=== PATIENT | male | born 1985 | race Caucasian/White ===

== ENCOUNTER 2019-05-16 16:24 | Emergency (ER) | payer SELFPAY ==
[2019-05-16 16:43] VITALS: BP 146/104; PULSE 111; RESP 16; TEMP 36.4; O2SAT 98; BMI 24.3
--- NOTE | 2019-05-16 16:54 | CTR_ITS ---
PROCEDURE INFORMATION: Exam: CT Head Without Contrast Exam date and time: 05/16/2019 4:55 PM Age: 33 years old Clinical indication: Injury or trauma; Fall; Work related; Initial encounter; Blunt trauma (contusions or hematomas); Altered mental status/memory loss; Injury details: C/O posterior head pain with abrasion TECHNIQUE: Imaging protocol: Computed tomography of the head without contrast. Total DLP: 865.7 mGy-cm Radiation optimization: All CT scans at this facility use at least one of these dose optimization techniques: automated exposure control; mA and/or kV adjustment per patient size (includes targeted exams where dose is matched to clinical indication); or iterative reconstruction. COMPARISON: No relevant prior studies available. FINDINGS: Brain: There is no acute intracranial hemorrhage or abnormal extra-axial fluid collection identified. There is no intracranial mass effect or shift of midline structures. The jamison-white differentiation is preserved throughout. Ventricles: There is no sulcal or ventricular effacement. The basilar cisterns are open. No hydrocephalus. Bones/joints: No calvarial fracture or destructive osseous lesions are seen. Sinuses: There is mild sinus mucosal disease, with no air-fluid level identified. Mastoid air cells: There is no mastoid effusion detected. CT/CT head wo con* [id number] IMPRESSION: No acute intracranial pathology identified by CT. Radiation Dose CTDIVOL = (mGy): DLP = 865.7 (mGy-cm)
== END 2019-05-16 19:23 | disposition home or self-care (01) ==
LOC: ER 17:37
PROVIDERS: Emergency Provider Nurse Practitioner Family; Family Provider Nurse Practitioner; PCP Nurse Practitioner
DX: Z53.21 Procedure and treatment not carried out due to patient leaving prior to being seen by health care provider (principal)
CPT/HCPCS: 70450; 99281

== ENCOUNTER 2019-05-17 10:15 | Emergency (ER) | payer SELFPAY ==
[2019-05-17 10:20] VITALS: BP 143/119; PULSE 104; RESP 16; TEMP 36.7; O2SAT 99; BMI 24.3
--- NOTE | 2019-05-17 10:31 | ED_ITS ---
Entered by Natalia Barrios, acting as scribe for May 17, 2019 10:15 HPI - Fall General: Chief Complaint: Fall Stated Complaint: Possible concusion Time Seen by Provider: 05/17/19 10:31 Source: patient and family Mode of arrival: ambulatory Limitations: no limitations History of Present Illness: HPI Narrative: 33 yo male presents with neck and head pain post fall. pt states he fell yesterday. pt was seen yesterday in the ED but the wait was to long and he left after CT scan. pt took ibuprofen for pain at home. pt had confusion yesterday after fall. unknown LOC. pt has had nausea. pt stated movement makes the pain worse. pt denies any other symptoms at this time. complaint: fall Onset (ago): day(s) (yesterday) Fall from: standing Fall witnessed: yes, by bystander Place fall occurred: home Loss of consciousness: Unsure Prolonged down time: no Symptoms prior to fall: none Context: other (it lost his balance and fell backwards off the porch) Location of injury: head (back of head) and neck (today) Severity: mild Quality: sharp (with movement) Associated symptoms-after fall: Reports headache(s), neck pain and other (head pain); Denies chest pain Review of Systems Const: Denies: fever, chills or night sweats Eyes: Denies: change in vision ENMT: Denies: throat pain, Change in hearing, tinnitus, disequilibrium, nasal discharge or nasal congestion Card: Denies: chest pain, palpitations, irregular heart rhythm, edema or syncope Resp: Denies: shortness of breath, productive cough or wheezing GI: Reports: nausea : Denies: flank pain, painful urination, urinary frequency or urinary urgency Musc: Reports: neck pain Neuro: Reports: headache PFSH ED PFSH: Statuses (acute, chronic, etc) shown below reflect problem list status as previously entered and may not be historically accurate Social History Smoking and tobacco status: current every day smoker Physical Exam Const: COMMON NORMALS: average body habitus, oriented x3 and alert GENERAL APPEARANCE: cooperative, comfortable, well kempt and well developed NUTRITIONAL APPEARANCE: obese ORIENTATION/CONSCIOUSNESS: Yes awake, Yes oriented to person and Yes oriented to place HENMT: COMMON NORMALS: normocephalic, head/scalp atraumatic, EAC's normal, TM's normal bilaterally, external nose normal, moist oral mucous membranes and oropharynx normal HEAD & SCALP: normocephalic and atraumatic NOSE: external nose normal EXTERNAL AUDITORY CANAL: EAC's normal TYMPANIC MEMBRANE: TM's normal bilaterally MOUTH: oral and palatal mucosa normal, lip normal and tongue normal THROAT: posterior oropharynx normal and tonsils normal Eye: COMMON NORMALS: PERRL, EOMs intact bilaterally, conjunctivae normal and no scleral icterus CONJUNCTIVA: Yes conjunctivae normal PUPIL: Yes PERRL Neck/C-Spine: COMMON NORMALS: full ROM, no lymphadenopathy, supple, no meningeal signs and thyroid normal THYROID: thyroid normal and asymmetrical Lymph: LYMPHATIC: no lymphadenopathy noted Resp: COMMON NORMALS: normal respiratory effort, no retractions, no use of accessory muscles and clear to auscultation bilaterally AUSCULTATION: clear to auscultation bilaterally Cardio: COMMON NORMALS: regular rate and regular rhythm RATE: regular rate RHYTHM: regular rhythm HEART SOUNDS: no murmurs GI: COMMON NORMALS: normal to inspection, nondistended, normoactive bowel sounds, soft to palpation and no hepatosplenomegaly PALPATION: Yes soft and Yes no hepatosplenomegaly : COMMON NORMALS: Yes no CVA tenderness BLADDER/KIDNEY EXAM: Yes no CVA tenderness Back/Pelvis: COMMON NORMALS: no CVA tenderness LUMBAR SPINE/LOWER BACK: Yes normal to inspection Extremity: COMMON NORMALS: no clubbing, cyanosis or edema, no calf tenderness and no pedal edema Neuro: COMMON NORMALS: oriented x3 SENSORIUM/ORIENTATION: Yes alert, Yes oriented to person and Yes oriented to place MENINGEAL SIGNS: Yes no meningeal signs Psych: APPEARANCE: Yes well kempt Skin: COMMON NORMALS: no rashes or lesions noted and skin turgor normal GENERAL SKIN EXAM: no rashes or lesions noted and turgor normal Course ED course: Reviewed imaging findings with the patient both head CT the C-spine is negative we will go and discharge home can use anti-inflammatories as needed Vital Signs: Vital signs: Vital Signs Temperature 98.0 F 05/17/19 10:20 Pulse Rate 98 05/17/19 11:43 Respiratory Rate 17 05/17/19 11:43 Blood Pressure 152/90 05/17/19 11:43 Pulse Oximetry 97 05/17/19 11:11 MDM - Fall Imaging Data^: CT Head: Radiologist's impression: PROCEDURE INFORMATION: Exam: CT Head Without Contrast Exam date and time: 05/16/2019 4:55 PM Age: 33 years old Clinical indication: Injury or trauma; Fall; Work related; Initial encounter; Blunt trauma (contusions or hematomas); Altered mental status/memory loss; Injury details: C/O posterior head pain with abrasion TECHNIQUE: Imaging protocol: Computed tomography of the head without contrast. Total DLP: 865.7 mGy-cm Radiation optimization: All CT scans at this facility use at least one of these dose optimization techniques: automated exposure control; mA and/or kV adjustment per patient size (includes targeted exams where dose is matched to clinical indication); or iterative reconstruction. COMPARISON: No relevant prior studies available. FINDINGS: Brain: There is no acute intracranial hemorrhage or abnormal extra-axial fluid collection identified. There is no intracranial mass effect or shift of midline structures. The jamison-white differentiation is preserved throughout. Ventricles: There is no sulcal or ventricular effacement. The basilar cisterns are open. No hydrocephalus. Bones/joints: No calvarial fracture or destructive osseous lesions are seen. Sinuses: There is mild sinus mucosal disease, with no air-fluid level identified. Mastoid air cells: There is no mastoid effusion detected. CT/CT head wo con* [id number] IMPRESSION: No acute intracranial pathology identified by CT. Radiation Dose CTDIVOL = (mGy): DLP = 865.7 (mGy-cm) Dictated By: Casandra Cody Other Xray: My impression: AP and lateral C-spine including odontoid view mild loss of disc space no acute fracture noted radiologist overread Discharge Plan Discharge Patient Disposition: Home, Self-Care Clinical Impression: Concussion with loss of consciousness Qualifiers: Encounter type: initial encounter Qualified Code(s): S06.0X9A - Concussion with loss of consciousness of unspecified duration, initial encounter Condition: Stable Prescriptions: No Action ibuprofen 200 mg Tablet 600 mg PO BID PRN (Reason: Pain) RF: 0 valerian root 450 mg Capsule 450 mg PO BEDTIME RF: 0 melatonin 5 mg Tablet 5 mg PO BEDTIME RF: 0 Discharge Orders: Discharge Order (Routine); Ordered 05/17/19 Ordered By: Bernardo Vu Referrals: Jeanette Carias FNP [Primary Care Provider] - Discharge Diet: Advance as tolerated Discharge Activity: Increase activity as tolerated Discharge Date/Time: 05/17/19 11:45 Coding Level of Care Code ED Rn Iv Therapy for Chg Fwd Exam Problem Focused The documentation recorded by the Denis alfonso Bridget Annette, accurately reflects the service I personally performed and the decisions made by Horace hinson Curtis L, May 17, 2019 10:15
[2019-05-17 10:44] VITALS: PULSE 103; RESP 17; O2SAT 97
[2019-05-17 11:11] VITALS: BP 152/90; RESP 18; O2SAT 97
--- NOTE | 2019-05-17 11:12 | XR_ITS ---
WS: [id number] CERVICAL SPINE 3 VIEWS HISTORY: fall, neck pain COMPARISON: None available. Normal posterior alignment. There is very slight loss of height involving C6. No fracture is identifi ed. Disc spaces are preserved. Lateral masses are aligned odontoid is intact. Soft tissues are normal. XR/XR cervical spine 3V* [id number] IMPRESSION: Very minimal anterior wedging of C6. Occult fracture is not excluded. No prior studies for comparison. Recommendation: Follow-up cervical spine CT.
[2019-05-17 11:43] VITALS: BP 152/90; PULSE 98; RESP 17
== END 2019-05-17 11:45 | disposition home or self-care (01) ==
PROVIDERS: Emergency Provider Family Medicine; Family Provider Nurse Practitioner; PCP Nurse Practitioner
DX: S06.0X9A Concussion with loss of consciousness of unspecified duration, initial encounter (principal); W19.XXXA Unspecified fall, initial encounter; Y92.009 Unspecified place in unspecified non-institutional (private) residence as the place of occurrence of the external cause; F17.210 Nicotine dependence, cigarettes, uncomplicated
CPT/HCPCS: 72040; 99281

== ENCOUNTER → 2020-02-09 13:40 | Outpatient (BNVA) | payer OTHER, SELFPAY | PROVIDERS: Family Provider Nurse Practitioner; PCP Nurse Practitioner; Visit Provider Psychiatry & Neurology Psychiatry | DX: F10.20 Alcohol dependence, uncomplicated (principal) | CPT/HCPCS: 80053; 80307; 85025 ==

== ENCOUNTER → 2020-04-26 15:05 | Outpatient (BNVA) | payer OTHER, SELFPAY | PROVIDERS: Family Provider Nurse Practitioner; Visit Provider Psychiatry & Neurology Psychiatry | DX: F10.20 Alcohol dependence, uncomplicated (principal); F40.10 Social phobia, unspecified; F41.1 Generalized anxiety disorder | CPT/HCPCS: 80053 ==

== ENCOUNTER → 2020-08-23 12:50 | Outpatient (BNVA) | payer OTHER, SELFPAY | PROVIDERS: Family Provider Nurse Practitioner; Visit Provider Psychiatry & Neurology Psychiatry | DX: F13.10 Sedative, hypnotic or anxiolytic abuse, uncomplicated (principal); F40.10 Social phobia, unspecified; F41.1 Generalized anxiety disorder; F10.20 Alcohol dependence, uncomplicated | CPT/HCPCS: 80053; 85025 ==

== ENCOUNTER 2024-11-13 23:15 | Inpatient (IN) | payer SELFPAY ==
--- OUTSIDE RECORDS SUMMARY | 2003-05-09 19:00 | XMS_ITS | Continuity of Care Document ---
Author Name [facility] Address [address] [place] [address] Organization [facility] Care Team Providers Care Supervisor Road Administrator Name Role Phone [facility] Unavailable Unavailable Problems Problem Status Onset Date Problem Type Date of Resolution Comme nts Source Alcoholism (disorder) Active Condition Unspecified abdominal pain Active Diagnosis Pleural effusion (disorder) Diagnosis Ascites (disorder) Diagnosis Essential hypertension (disorder) Diagnosis Steatosis of liver (disorder) Diagnosis Long-term current use of drug therapy (situation) Diagnosis Nicotine dependence (disorder) Diagnosis Current drinker of alcohol (finding) Diagnosis Ethanol in blood specimen above reference range (finding) Diagnosis Splenic infarction (disorder) Diagnosis
[2024-11-13 23:21] VITALS: BP 147/109; PULSE 91; RESP 16; TEMP 36.8; O2SAT 95; BMI 25.1
--- OUTSIDE RECORDS SUMMARY | 2024-11-13 23:23 | XMS_ITS | Encounter Summary ---
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
--- OUTSIDE RECORDS SUMMARY | 2024-11-13 23:23 | XMS_ITS | Clinical Summary ---
Author Organization [facility] Address [address] [place] [address] Care Team Providers Care Picture Frame Maker Name Role Phone Asya Alfaro Primary Care Provider [phone] Allergies No known active allergies Medications aspirin (ECOTRIN EC) 81 mg Tablet, Delayed Release (E.C.) Take 81 mg by mouth daily. Active meloxicam (Mobic) 15 mg tabletIndications :Chronic midline low back pain without sciatica Take 1 Tablet (15 mg) by mouth daily. 30 Tablet 5 4 Active diltiaZEM (CARDIZEM CD) 240 mg Controlled Delivery 24 hour capsuleIndication s:Essential hypertension Take 1 Capsule (240 mg) by mouth daily. 90 Capsule 3 4 Active albuterol sulfate HFA 90 mcg/actuation aerosol inhalerIndication s:Pneumonia of right lower lobe due to infectious organism Take 2 Puffs by inhalation every 6 hours as needed for Shortness of Breath. 8.5 Gram 5 Active gemfibroziL (LOPID) 600 mg tablet TAKE 1 TABLET(600 MG) BY MOUTH TWICE DAILY 180 Tablet 5 Active traZODone (DESYREL) 50 mg tabletIndications :Insomnia due to medical condition Take 1 Tablet (50 mg) by mouth daily at bedtime. 30 Tablet 3 5 Active propranoloL (INDERAL) 40 mg tabletIndications :Essential hypertension,Gene ralized anxiety disorder TAKE 1 TABLET(40 MG) BY MOUTH TWICE DAILY NEEDED FOR ANXIETY OR FAST HEART RATE 180 Tablet 5 Active Active Problems Problem Noted Date Diagnosed Date Fatty liver 03/21/2024 Daily consumption of alcohol 03/21/2024 Chronic midline low back pain without sciatica 1 05/21/2023 Tachycardia 12/20/2023 Portal vein thrombosis 09/18/2023 Acute pancreatitis 08/30/2023 Tobacco use 08/30/2023 Generalized anxiety disorder 12/22/2020 Essential hypertension 12/22/2020 Encounters Date Type Department Care Team Description 11/07/2024 External Device Data [facility]STRACTION Provider, Abstract 11/07/2024 External Device Data [facility] Provider, Abstract 10/31/2024 External Device Data [facility] Provider, Abstract 10/13/2024 Refill [facility] [address] [place] [address] Gretta Bernard, PRE OWNED SALES MANAGER Essential hypertension; Generalized anxiety disorder 10/12/2024 Telephone [facility] [address] [place] [address] Asya Alfaro DO Clinical Consult Before Scheduling 10/11/2024 2:20 PM CDT Office Visit [place] [id number] [place] [address] Gretta Bernard, PRE OWNED SALES MANAGER Spider bite wound, accidental or unintentional, subsequent encounter (Primary Dx); Insomnia due to medical condition 10/10/2024 External Device Data [facility] Provider, Abstract 10/10/2024 External Device Data [facility] Provider, Abstract 10/10/2024 External Device Data [facility] Provider, Abstract 10/06/2024 6:58 PM CDT - 10/06/2024 8:13 PM CDT Emergency [facility] Emergency Medicine [address] [place] [address] Derek Kebede MD Spider bite wound, accidental or unintentional, initial encounter (Primary Dx) Discharge Disposition: Home or Self Care 10/06/2024 Travel 09/14/2024 [facility] [address] [place] [address] Asya Alfaro DO 08/22/2024 External Device Data [facility] ABSTRACTION Provider, Abstract 08/15/2024 External Device Data [facility] Provider, Abstract 08/15/2024 External Device Data [facility] Provider, Abstract from Last 3 Months Immunizations Immunization Administration Dates Next Due (ADACEL/BOOSTRIX)(10 YR UP) TDAP VACCINE, 0.5ML, IM 10/06/2024 (M-M-R II/PRIORIX)(12 MO UP) MEASLES, MUMPS AND RUBELLA VIRUS VACCINE, 0.5 ML IM/SUBCUT 04/17/1993,08/07/1991 (TDVAX)(7 YRS UP) TETANUS AN D DIPHTHERIA TOXOIDS, ADSORBED (2 LF OF TETANUS TOXOID AND 2 LF OF DIPHTHERIA TOXOID), 0.5ML (PF), IM 01/27/2002 Dt Dtp Dtap Vaccine 04/17/1993,08/07/1991,1989 Hepatitis B Vaccine 01/27/2002,04/17/1993,1991 IPV/OPV 04/17/1993,08/07/1991,01/18/1990 Social History Tobacco Use Types Packs/Day Years Used Date Smoking Tobacco: Every Day Cigarettes Smokeless Tobacco: Former Chew Tobacco Cessation:Ready to Q uit: Not Asked; Counseling Given: Not Answered Alcohol Use Standard Drinks/Week Comments Not Currently 102 (1 standard drink = 0.6 oz p ure alcohol) Feeling Safe Answer Date Recorded Are you in a relationship wi th someone who hurts you emotionally and/or physically? 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 Gender Identity Not on file Sexual Orientation Not on file Last Filed Vital Signs Vital Sign Reading Time Taken Comments Blood Pressure 118/62 10/11/2024 2:18 PM CDT Pulse 89 10/11/2024 2:18 PM CDT Temperature 36.8 C (98.2 F) 10/11/2024 2:18 PM CDT Respiratory Rate 17 10/11/2024 2:18 PM CDT Oxygen Saturation 94% 10/11/2024 2:18 PM CDT Inhaled Oxygen Concentration - - Weight 79.5 kg (175 lb 3.2 oz) 10/11/2024 2:18 P M CDT Height 177.8 cm (5' 10 ) 10/11/2024 2:18 PM CDT Body Mass Index 25.14 10/11/2024 2:18 PM CDT Plan of Treatment Health Maintenance Due Date Last Done Comments COVID-19 Vaccine ( season) 2024 12/31/2020 Preventative Visit- Commercial 05/10/2024 12/20/2023, 07/30/2022 INFLUENZA VACCINE (#1) 2024 03/21/2024 Pre-Diabetes and Diabetes Screening 12/19/2026 12/20/2023 DTAP/TDAP/TD VACCINES (5 - Td or Tdap) 10/06/2034 10/06/2024, 01/27/2002, 04/17/1993, Additional history exists HEPATITIS B VACCINES Completed 01/27/2002, 04/17/1993, 12/28/1991 Abdominal Aortic Aneurysm (AAA) Screening Completed 08/28/2023 HPV VACCINES Aged Out No longer eligi ble based on patient's age to complete this topic Procedures Procedure Name Priority Date/Time Associated Diagnosis Comments HEMOGLOBIN A1C Routine 12/20/2023 9:30 AM CDT Encounter for annual physical exam CT ABDOMEN PELVIS WO CONTRAST Stat 08/28/2023 3:30 PM CDT from Last 3 Months or Most Recently Relevant to Health Maintenance Results * HEMOGLOBIN A1C (12/20/2023 9:30 AM CDT) HEMOGLOBIN A1C 5.5 <5.7 % of total Hgb [facility] Comment: For the purpose of screening for the presence of diabetes: <5.7% Consistent with the absence of diabetes 5.7-6.4% Consistent with increased risk for diabetes (prediabetes) > or =6.5% Consistent with diabetes This assay result is consistent with a decreased risk of diabetes. Currently, no consensus exists regarding use of hemoglobin A1c for diagnosis of diabetes in children. According to [place] Diabetes Association (ADA) guidelines, hemoglobin A1c <7.0% represents optimal control in non- diabetic patients. Different metrics may apply to specific patient populations. Standards of Medical Care in Diabetes(ADA). ESTIMATED AVERAGE GLUCOSE (MG/DL) 111 mg/dL [facility] ESTIMATED AVERAGE GLUCOSE (MMOL/L) 6.2 mmol/L [facility] Comment: This test was performed on the Barbara anna c503 platform. Effective 07/26/23, a change in test platforms from the [employer] Farmer to the Barbara anna c503 may have shifted HbA1c results compared to historical results. Based on laboratory validation testing conducted at [facility], the Barbara platform relative to the Quiroz platform had an average increase in HbA1c value of < or = 0.3%. This difference is within accepted variability established by the National Glycohemoglobin Standardization Program. Note that not all individuals will have had a shift in their results and direct comparisons between historical and current results for testing conducted on different platforms is not recommended. Test Performed at: [facility] [address] [place] [address] Aidan Mccoy MD Blood 12/20/2023 9:30 AM CDT 2023 5:12 AM CDT Gretta Bernard PRE OWNED SALES MANAGER CHEMISTRY ORDERABLES Final Result [facility] [phone] [facility] [address] [place] [address] * CT ABDOMEN PELVIS WO CONTRAST (08/28/2023 3:30 PM CDT) Anatomical Region Laterality Modality Abdomen Computed Tomogra phy 08/28/2023 3:30 PM CDT Impressions 08/28/2023 3:44 PM CDT IMPRESSION: Please see below. Exam: CT ABDOMEN PELVIS WO CONTRAST Date/Time of Exam: 08/28/2023 3:30 PM Reason For Exam: Abdominal pain, acute, nonlocalized. Diagnosis: See Reason for Exam. Technique: Axial tomograms obtained through the abdomen and pelvis without IV contrast. Findings: Imaged lung bases with streak atelectasis. Parenchymal detail of solid abdominal organs limited by absent IV contrast. Marked fatty infiltration of liver. Gallbladder unremarkable. Spleen size within normal limits. Peripancreatic inflammatory change adjacent to tail of pancreas. No gross discrete pancreatic lesion. Adrenals unremarkable. No gross focal concerning renal lesion or hydronephrosis. No ascites. No free air. Bladder unremarkable. No obstructive pattern of bowel. Appendix unremarkable. No aneurysm of abdominal aorta. No central retroperitoneal lymphadenopathy by size criteria. No acute pathology. IMPRESSION: Pancreatitis. Marked fatty infiltration of liver. Narrative Procedure Note Cabrera Bernard MD - 08/28/2023 IMPRESSION: Please see below. Exam: CT ABDOMEN PELVIS WO CONTRAST Date/Time of Exam: 08/28/2023 3:30 PM Reason For Exam: Abdominal pain, acute, nonlocalized. Diagnosis: See Reason for Exam. Technique: Axial tomograms obtained through the abdomen and pelvis without IV contrast. Findings: Imaged lung bases with streak atelectasis. Parenchymal detail of solid abdominal organs limited by absent IV contrast. Marked fatty infiltration of liver. Gallbladder unremarkable. Spleen size within normal limits. Peripancreatic inflammatory change adjacent to tail of pancreas. No gross discrete pancreatic lesion. Adrenals unremarkable. No gross focal concerning renal lesion or hydronephrosis. No ascites. No free air. Bladder unremarkable. No obstructive pattern of bowel. Appendix unremarkable. No aneurysm of abdominal aorta. No central retroperitoneal lymphadenopathy by size criteria. No acute pathology. IMPRESSION: Pancreatitis. Marked fatty infiltration of liver. Yumiko Gonzalez MD CT ORDERABLES Final Result from Last 3 Months or Most Recently Relevant to Health Maintenance Insurance [id number] BLUE PREFERRED Advance Directives For more information, please contact: [phone] * Full Code (Latest Code Status on File) Date Activated Date Inactivated Comments 08/28/2023 6:36 PM 08/30/2023 9:59 PM Care Teams Picture Frame Maker Relationship Specialty Start Date End Date Asya Alfaro DO [address] [place] [id number] PCP - General Family Practice 08/28/23
--- OUTSIDE RECORDS SUMMARY | 2024-11-13 23:23 | XMS_ITS | Clinical Summary ---
Author Organization [facility] Address [address] [place] [address] Care Team Providers Care Ecd Name Role Phone Unavailable Primary Care Provider Unavailabl e Allergies No known active allergies Medications aspirin-calcium carbonate 81 mg-300 mg calcium(777 mg) Tablet Take 81 mg by mouth. Active busPIRone (BUSPAR) 15 mg TabletIndications :Generalized anxiety disorder Take 1 Tablet (15 mg) by mouth 2 times daily. 180 Tablet 10/25/2020 Active metoprolol succinate (TOPROL XL) 25 mg Extended Release 24 hour tabletIndications :Essential hypertension Take 1 Tablet (25 mg) by mouth daily. 90 Tablet 10/25/2020 Active Active Problems No known active problems Immunizations Immunization Administration Dates Next Due (M-M-R II/PRIORIX)(12 MO UP) MEASLES, MUMPS AND RUBELLA VIRUS VACCINE, 0.5 ML IM/SUBCUT 04/17/1993,08/07/1991 (TDVAX)(7 YRS UP) TETANUS AN D DIPHTHERIA TOXOIDS, ADSORBED (2 LF OF TETANUS TOXOID AND 2 LF OF DIPHTHERIA TOXOID), 0.5ML (PF), IM 01/27/2002 Dt Dtp Dtap Vaccine 04/17/1993,08/07/1991,1989 Hepatitis B Vaccine 01/27/2002,04/17/1993,1991 IPV/OPV 04/17/1993,08/07/1991,01/18/1990 Social History Tobacco Use Types Packs/Day Years Used Date Smoking Tobacco: Former Smokeless Tobacco: Never Alcohol Use Standard Drinks/Week Comments Yes 0 (1 standard drink = 0.6 oz pur e alcohol) Sex and Gender Information Value Date Recorded Sex Assigned at Not on file 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 Gender Identity Not on file Sexual Orientation Not on file Last Filed Vital Signs Vital Sign Reading Time Taken Comments Blood Pressure 140/78 09/26/2019 1:46 PM CDT Pulse 94 09/26/2019 1:46 PM CDT Temperature 36.8 C (98.3 F) 09/26/2019 1:46 PM CDT Respiratory Rate 18 09/26/2019 1:46 PM CDT Oxygen Saturation 98% 09/26/2019 1:46 PM CDT Inhaled Oxygen Concentration - - Weight 77.1 kg (170 lb) 09/26/2019 1:46 PM CDT Height 177.8 cm (5' 10 ) 09/26/2019 1:46 PM CDT Body Mass Index 24.39 09/26/2019 1:46 PM CDT Plan of Treatment Health Maintenance Due Date Last Done Comments DTAP/TDAP/TD VACCINES (4 - Tdap) 01/28/2002 01/27/2002, 04/17/1993, 08/07/1991, Additional history exists INFLUENZA VACCINE (#1) 2024 HEPATITIS B VACCINES Completed 01/27/2002, 04/17/1993, 12/28/1991 HPV VACCINES Aged Out No longer eligi ble based on patient's age to complete this topic
--- OUTSIDE RECORDS SUMMARY | 2024-11-13 23:23 | XMS_ITS | Encounter Summary ---
Author Organization [email or web address] Address 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
--- OUTSIDE RECORDS SUMMARY | 2024-11-13 23:23 | XMS_ITS | Encounter Summary ---
[facility] Organization [facility] Address 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
--- NOTE | 2024-11-13 23:33 | ECG_ITS ---
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 Measurements Intervals [place] Rate: 94 P: 57 NM: 180 QRS: 38 QRSD: 89 T: 56 QT: 358 QTc: 449 Interpretive Statements SINUS RHYTHM No previous ECG available for comparison Electronically Signed On 11-14-2024 08:17:46 CDT by Jatinder Coon M.D. [email or web address]
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
[2024-11-13 23:54] LABS: Hematocrit 45.9 % (37-53); Hemoglobin 15.90 g/dL (11.27-16.99); Mean Corpuscular HGB Conc 34.6 g/dL (30-55); Mean Corpuscular Hemoglobin 33.6 pg (27-33); Mean Corpuscular Volume 97.0 fl (82-101); Nucleated Red Blood Cells % 0 %; Platelet Count 235 10^3/cmm (157-399); Red Blood Count 4.73 10^6/uL (3.85-5.65); White Blood Count 7.67 10^3/uL (3.29-11.43)
[2024-11-14] VITALS (8 sets, daily range): BP systolic 117–150; BP diastolic 76–110; PULSE 75–105; RESP 16–18; TEMP 36.4–36.7; O2SAT 95–100
--- NOTE | 2024-11-14 00:21 | PC.NURSE ---
RN, Babak Wallace, and [facility] Security counted patient's perales that was in his wallet. Patient's perales and wallet were placed into a patient's valuable envelope then [facility] Security placed the envelope into the safe.
[2024-11-14 00:25] LABS: Acetaminophen < 5.0 ug/mL (10-30); Alanine Aminotransferase 109 U/L (0-41); Albumin Level 4.6 g/dL (3.5-5.2); Alcohol Level 260 mg/dL (0-10); Alkaline Phosphatase 146 U/L (40-130); Anion Gap 19.8 (5-19); Aspartate Amino Transferase 122 U/L (0-40); Blood Urea Nitrogen 6 mg/dL (6-20); Calcium 9.2 mg/dL (8.5-10.5); Carbon Dioxide 22 mmol/L (22-29); Chloride 104 mmol/L (98-107); Creatinine Clr Calc Pharmacy 152.9020; Globulin 3.7 g/dL (1.3-4.6); Glucose 96 mg/dL (65-115); Osmolality Calculated 291 mOsm/kg (285-295); Potassium 3.8 mmol/L (3.5-5.1); Salicylate < 0.3 mg/dL (3-10); Sodium 142 mmol/L (136-145); Thyroid Stimulating Hormone 1.14 uIU/mL (0.27-4.20); Total Protein 8.3 g/dL (6.6-8.7)
[2024-11-14 00:27] LABS: Glucose Urine UA Negative (Normal); Nitrate Urine Negative (Negative); Specific Gravity, Urine 1.005 (1.005-1.030)
[2024-11-14 00:32] LABS: Add Urine Microscopic? YES
[2024-11-14 00:35] LABS: PCP Screen Urine Negative (Negative)
--- NOTE | 2024-11-14 06:06 | PC.NURSE ---
96 Pt given copy of 96 Hour Hold by this RN and security. Pt A&Ox3 I shouldn't have did what I did. That was wrong of me. My grandma lost my grandpa the same way . Pt also stated I need to get help . All questions answered.
[2024-11-14] MEDS: dilTIAZem ER (24HR) 240 mg Capsule PO (15:37)
[2024-11-15 04:00] VITALS: BP 115/78; PULSE 63; RESP 16; O2SAT 94
[2024-11-15 07:06] VITALS: BP 122/89; PULSE 81; RESP 16; TEMP 36.6; O2SAT 95
[2024-11-15] MEDS: dilTIAZem ER (24HR) 240 mg Capsule PO (07:43)
[2024-11-15] MEDS: multivitamin therapeutic Tablet 1 TAB PO (07:43)
[2024-11-15 11:03] VITALS: BP 134/102; PULSE 76; RESP 16; TEMP 36.8; O2SAT 97
--- NOTE | 2024-11-15 11:24 | PC.NURSE ---
PRN MED PT GIVEN 2MG ATIVAN PO FOR SCORING 11 ON CIWA, PT DETOXING, WILL CONTINUE TO MONITOR.
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
[2024-11-15 14:02] VITALS: BP 111/74; PULSE 98; RESP 16; TEMP 36.6; O2SAT 100
[2024-11-15 16:00] VITALS: BP 125/83; PULSE 61; RESP 16; TEMP 37; O2SAT 99
[2024-11-15 19:42] VITALS: BP 121/78; PULSE 74; RESP 16; TEMP 36.4; O2SAT 98
[2024-11-16] VITALS: BP 85/55; PULSE 84; RESP 18; TEMP 36.5; O2SAT 96
[2024-11-16 04:00] VITALS: BP 106/73; PULSE 78; RESP 18; TEMP 36.7; O2SAT 96
[2024-11-16 08:00] VITALS: BP 116/79; PULSE 69; RESP 16; TEMP 36.3; O2SAT 99
[2024-11-16] MEDS: dilTIAZem ER (24HR) 240 mg Capsule PO (08:47)
[2024-11-16] MEDS: multivitamin therapeutic Tablet 1 TAB PO (08:47)
[2024-11-16 12:00] VITALS: BP 106/75; PULSE 66; RESP 16; TEMP 36.6; O2SAT 97
[2024-11-16 14:39] VITALS: BP 102/71; PULSE 66; RESP 16; TEMP 36.8; O2SAT 95
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
[2024-11-16 19:31] VITALS: BP 125/85; PULSE 75; RESP 16; TEMP 36.7; O2SAT 97
[2024-11-17] VITALS (7 sets, daily range): BP systolic 105–142; BP diastolic 68–95; PULSE 59–79; RESP 16–19; TEMP 36.3–36.7; O2SAT 59–100
[2024-11-17] MEDS: dilTIAZem ER (24HR) 240 mg Capsule PO (08:19)
[2024-11-17] MEDS: multivitamin therapeutic Tablet 1 TAB PO (08:19)
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
[2024-11-18 04:00] VITALS: BP 124/85; PULSE 73; RESP 17; TEMP 36.4; O2SAT 97
[2024-11-18 08:00] VITALS: BP 109/74; PULSE 84; RESP 16; TEMP 36.6; O2SAT 97
[2024-11-18] MEDS: multivitamin therapeutic Tablet 1 TAB PO (08:28)
[2024-11-18] MEDS: dilTIAZem ER (24HR) 240 mg Capsule PO (08:28)
[2024-11-18 11:59] VITALS: BP 125/90; PULSE 69; RESP 17; TEMP 36.6; O2SAT 98
--- NOTE | 2024-11-18 13:29 | P.NPUPN_ITS ---
Subjective NPU 2 Subjective: Patient presented today reporting that things are all right. We discussed the plan for likely discharge at the beginning of the week but that we had held him for observation just given the severity of his behavior putting the gun in his mouth. He continues to report that weapons will be removed from his residence and that he is accepting of why he has to still be here. He began discussing a plan for how he was going to manage things after discharge. He denied any side effects to any medications. Mental Status Exam 2 MSE Comments: This is a well-nourished, well-developed white male in hospital scrubs with limited grooming but adequate eye contact. No abnormal movements except for psychomotor retardation. Mostly cooperative with exam in mild to moderate distress. Speech was decreased rate and volume. Mood described as a little better, affect congruent. Thought process mostly organized, thought content: Patient denies suicidal or homicidal ideation but acknowledges the suicide attempt prior to admission, there were no delusions reported or noted, he denied any auditory or visual hallucinations. Attention and concentration were intact and memory was mostly reliable but none were formally tested. He is alert and oriented times 3. Insight, judgment and impulse control are limited versus impaired. Vitals/I&O/Wt Last Vital Signs Temp 97.8 F 11/18/24 11:59 Pulse 69 11/18/24 11:59 Resp 17 11/18/24 11:59 BP 125/90 11/18/24 11:59 Pulse Ox 98 11/18/24 11:59 O2 Del Method Room Air 11/18/24 04:00 O2 Flow Rate 96 11/17/24 07:29 Data NPU 11/13/24 23:47 11/13/24 23:47 A&P Assessment and plan 1. Alcohol use disorder, moderate, dependence: 2. Generalized anxiety disorder: 3. Social anxiety disorder: 4. Benzodiazepine abuse, continuous: 5. Suicidal ideation: 6. Major depressive disorder: Plan: This is a 38-year-old white male with a long history of addiction and depression and some reports of trauma who presents with active addiction specifically with alcohol and recent job loss leading to a suicide attempt. He reports that the situation was generally an mostly driven by his alcohol addiction and he feels better but might consider medication. 1. Continue current medication. Will consider Wellbutrin XL in the morning. 2. Encourage individual, group and milieu therapy. 3. Continue every 15 minute checks for safety. 4. Encourage sober living treatment after discharge to the highest level care to which he is willing to commit. 5. Observe against the backdrop of the 96-hour hold. 6. Get collateral information. 7. Filed for 21-day hold today. Unclear if we will actually have a hearing but given the gun placed in his mouth that we will certainly need to monitor him through the weekend. PDMP PDMP Reviewed: Not Reviewed Involuntary Hold Information 2 Hold Status: Legal Status: 96 Hour Hold Date/Time Hold Expires: 11/20/24 @ 0231 Attestations NPU 2 Medical Necessity Statement*: Inpatient hospitalization is medically necessary and the clinically appropriate intervention at this time. We will monitor/initiate medications and make changes as indicated. Likely length of stay 2 to 4 days. Coding Level of Care Code Acute Code for g Fwd Diagnoses Alcohol use disorder, moderate, dependence F10.20 Generalized anxiety disorder F41.1 Social anxiety disorder F40.10 Benzodiazepine abuse, continuous F13.10 Suicidal ideation R45.851 Major depressive disorder F32.9
[2024-11-18 16:00] VITALS: BP 101/64; PULSE 66; RESP 16; TEMP 36.6; O2SAT 95
[2024-11-18 20:00] VITALS: BP 99/75; PULSE 81; RESP 18; TEMP 36.6; O2SAT 97
--- NOTE | 2024-11-19 03:33 | PC.NURSE ---
vs not completed per charge nurse resp 16
[2024-11-19 04:00] VITALS: BP 117/84; PULSE 73; RESP 18; TEMP 37.3; O2SAT 96
[2024-11-19 06:00] VITALS: BMI 25.4
[2024-11-19 08:00] VITALS: BP 126/90; PULSE 81; RESP 20; TEMP 36.5; O2SAT 99
--- NOTE | 2024-11-19 08:21 | P.NPUPN_ITS ---
Subjective NPU 2 Subjective: Patient presented today reporting that he is feeling better and doing okay. He endorsed the possibility of selling his property to manage his debts. Otherwise we discussed him working with the social work team tomorrow to look at aftercare appointments and possible follow-up. He seems to identify the importance of him discontinuing his drinking but it is unclear if he is committed to some kind of active programming. He continues to be not interested in medication but focused on getting his life back in order. Mental Status Exam 2 MSE Comments: This is a well-nourished, well-developed white male in hospital scrubs with limited grooming but adequate eye contact. No abnormal movements except for psychomotor retardation. Cooperative with exam in mild distress. Speech was more normal rate and volume. Mood described as better, affect congruent. Thought process mostly organized, thought content: Patient denies suicidal or homicidal ideation but acknowledges the suicide attempt prior to admission, there were no delusions reported or noted, he denied any auditory or visual hallucinations. Attention and concentration were intact and memory was mostly reliable but none were formally tested. He is alert and oriented times 3. Insight, judgment and impulse control are limited but improving. Vitals/I&O/Wt Last Vital Signs Temp 99.1 F 11/19/24 04:00 Pulse 73 11/19/24 04:00 Resp 18 11/19/24 04:00 BP 117/84 11/19/24 04:00 Pulse Ox 96 11/19/24 04:00 O2 Del Method Room Air 11/19/24 04:00 O2 Flow Rate 96 11/17/24 07:29 Weight last 48 hrs Weight 80.456 kg Data NPU 11/13/24 23:47 11/13/24 23:47 A&P Assessment and plan 1. Alcohol use disorder, moderate, dependence: 2. Generalized anxiety disorder: 3. Social anxiety disorder: 4. Benzodiazepine abuse, continuous: 5. Suicidal ideation: 6. Major depressive disorder: Plan: This is a 38-year-old white male with a long history of addiction and depression and some reports of trauma who presents with active addiction specifically with alcohol and recent job loss leading to a suicide attempt. He reports that the situation was generally an mostly driven by his alcohol addiction and he feels better but might consider medication. 1. Continue current medication. Will consider Wellbutrin XL in the morning. 2. Encourage individual, group and milieu therapy. 3. Continue every 15 minute checks for safety. 4. Encourage sober living treatment after discharge to the highest level care to which he is willing to commit. 5. Observe against the backdrop of the 96-hour hold. 6. Get collateral information. 7. Filed for 21-day hold today. Unclear if we will actually have a hearing but given the gun placed in his mouth that we will certainly need to monitor him through the weekend. PDMP PDMP Reviewed: Not Reviewed Involuntary Hold Information 2 Hold Status: Legal Status: 96 Hour Hold Date/Time Hold Expires: 11/20/24 @ 0231 Attestations NPU 2 Medical Necessity Statement*: Inpatient hospitalization is medically necessary and the clinically appropriate intervention at this time. We will monitor/initiate medications and make changes as indicated. Likely length of stay 1-3 days. Coding Level of Care Code Acute Code for g Fwd Diagnoses Alcohol use disorder, moderate, dependence F10.20 Generalized anxiety disorder F41.1 Social anxiety disorder F40.10 Benzodiazepine abuse, continuous F13.10 Suicidal ideation R45.851 Major depressive disorder F32.9
[2024-11-19] MEDS: dilTIAZem ER (24HR) 240 mg Capsule PO (09:02)
[2024-11-19] MEDS: multivitamin therapeutic Tablet 1 TAB PO (09:02)
[2024-11-19 12:00] VITALS: BP 114/79; PULSE 66; RESP 17; TEMP 37.1; O2SAT 98
[2024-11-19 19:40] VITALS: BP 119/88; PULSE 67; RESP 17; TEMP 36.7; O2SAT 99
[2024-11-20 06:00] VITALS: BP 119/87; PULSE 67; RESP 18; TEMP 36.8; O2SAT 99
[2024-11-20] MEDS: multivitamin therapeutic Tablet 1 TAB PO (07:39)
[2024-11-20] MEDS: dilTIAZem ER (24HR) 240 mg Capsule PO (07:39)
[2024-11-20 13:46] VITALS: BP 133/85; PULSE 69; RESP 16; TEMP 36.4; O2SAT 96
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
[2024-11-20 14:06] VITALS: BP 133/85; PULSE 69; RESP 16; TEMP 36.4; O2SAT 96
== END 2024-11-20 15:18 | disposition home or self-care (01) | DRG 881 ==
LOC: ER 11-14 02:41 → ER IP 11-14 06:07 → NP 11-14 12:31
PROVIDERS: Nurse Practitioner; Admitting Provider Psychiatry & Neurology Psychiatry; Emergency Provider Family Medicine; Family Provider Nurse Practitioner; Visit Provider Psychiatry & Neurology Psychiatry
DX: F32.9 Major depressive disorder, single episode, unspecified (principal); R45.851 Suicidal ideations; F10.20 Alcohol dependence, uncomplicated; F41.1 Generalized anxiety disorder; F40.10 Social phobia, unspecified; F13.10 Sedative, hypnotic or anxiolytic abuse, uncomplicated; F17.210 Nicotine dependence, cigarettes, uncomplicated; I10 Essential (primary) hypertension; Z81.8 Family history of other mental and behavioral disorders
CPT/HCPCS: 36415; 80053; 80306; 80307; 81001; 84443; 85025; 93005; 97150; 97165; 99285; J9999